=== PATIENT | male | born 1990 | race Caucasian/White ===

== ENCOUNTER 2016-12-03 15:56 | Observation (INO) ==
[2016-12-03] MEDS ORDERED: 0.9 % Sodium Chloride 1,000 ML ONE (16:06)
[2016-12-03] MEDS ORDERED: methylPREDNISolone 125 MG/2 ML VIAL ONE (16:11)
[2016-12-03] MEDS ORDERED: Albuterol 2.5 MG/3 ML NEBULIZER IH ONE (16:14)
[2016-12-03] MEDS ORDERED: 0.9 % Sodium Chloride 1,000 ML IVC ONE (16:16)
[2016-12-03] MEDS ORDERED: Famotidine 20 MG/2 ML VIAL IVP ONE (16:16)
[2016-12-03] MEDS ORDERED: methylPREDNISolone 125 MG/2 ML VIAL IVP ONE (16:16)
[2016-12-03] MEDS ORDERED: *HR* EPINEPHrine 1 MG/ML AMPUL IM ONE ×2 (16:16→16:19)
--- NOTE | 2016-12-03 16:24 | Emergency Department Note ---
Disposition Clinical Impression: Anaphylaxis Disposition: Admitted As Inpatient Condition: Good General Adult HPI - General Chief complaint: ED Allergic Reaction Stated complaint: allergic reaction Time Seen by Provider: 12/03/16 16:14 Source: family - History of Present Illness Pain Scale: 0 - Related Data Home Medications Medication Instructions Recorded Confirmed Beclomethasone Diprop 40mcg [QVAR 1 puff IH BID 12/03/16 12/04/16 40 mcg] LevETIRAcetam [Keppra] 500 mg PO BID 12/03/16 12/04/16 Montelukast [Singulair] 10 mg PO HS 12/03/16 12/04/16 Guanfacine [Tenex] 1 mg PO BID 12/04/16 12/04/16 Previous Rx's Medication Instructions Recorded Diphenhydramine HCl [Allergy 25 mg PO Q6H PRN #15 capsule 12/04/16 Relief] EPINEPHrine [Epipen] 0.3 mg IM ONCE PRN #1 auto.injct 12/04/16 PredniSONE 20 mg PO BIDWM #10 tablet 12/04/16 Allergies Allergy/AdvReac Type Severity Reaction Status Date / Time Penicillins Allergy Hives Verified 12/04/16 11:51 Past Medical History - Past Medical History Medical history: Reports: no medical history Psychiatric history: Reports: ADHD - Social History Smoking Status: Never smoker Smokeless Tobacco Status: No Alcohol use: Reports: none Drug use: Reports: none Physical Exam - General General appearance: in distress Course - Reevaluation(s) Reevaluation #1: I saw the patient with the resident, Dr. Harry. The patient presents with anaphylaxis. He ate a seafood restaurant and shortly thereafter developed hives and shortness of breath. On arrival he was tachypneic with hives all over his body. Blood pressure was 70 systolic. He was given 2 doses of epinephrine IM as well as steroids and Benadryl and albuterol treatments. He is definitely improving. Blood pressure is good at this point. We will continue to observe the patient for rebound. Time: 16:15 Vital Signs Temperature 98 F 12/03/16 16:05 Pulse Rate 113 12/03/16 16:05 Respiratory Rate 24 12/03/16 16:05 Blood Pressure 112/86 12/03/16 16:05 O2 Sat by Pulse Oximetry 99 12/03/16 16:05 Temperature 99.0 F 12/04/16 11:13 Pulse Rate 110 12/04/16 11:13 Respiratory Rate 15 12/04/16 11:13 Blood Pressure 124/71 12/04/16 11:13 O2 Sat by Pulse Oximetry 97 12/04/16 11:13 Oxygen Delivery Oxygen Delivery Room Air Medical Decision Making - Lab Data Result diagrams: 12/04/16 04:46 12/04/16 04:46 Attestation Statement - Attestation Attestation: I, Dr. Dodge, examined this patient [id number] and my medical decision- making was reviewed with Dr. Harry, Resident Physician. I agree with the documented findings, disposition and treatment plan as described except to the extent set forth below. Please see my progress note for details.
--- NOTE | 2016-12-03 16:33 | Emergency Department Note ---
Disposition Clinical Impression: Anaphylaxis Qualifiers: Encounter type: initial encounter Qualified Code(s): T78.2XXA - Anaphylactic shock, unspecified, initial encounter Disposition: Admitted As Inpatient Condition: Good Forms: ED Satisfaction Letter Time of Disposition: 18:03 Allergic Reaction HPI - General Chief complaint: ED Allergic Reaction Stated complaint: allergic reaction Time Seen by Provider: 12/03/16 16:14 Source: family Nursing Notes Reviewed: Yes Vital Signs Reviewed: Yes - History of Present Illness HPI Narrative: Autistic Patient ate at a [place] restaurant approximately an hour ago. While ambulating through [employer] patient stated he was having shortness of breath. Mother noticed that his arms were red so they brought him to the emergency department. She does have an allergy history to penicillins. Mother does not believe he has had contact with penicillins today. - Related Data Allergies Allergy/AdvReac Type Severity Reaction Status Date / Time Penicillins Allergy Hives Verified 12/03/16 16:08 Review of Systems: Review of systems obtained from patient's mother. She denies any fever or recent illnesses Other than that the Pt has had a runny nose recently. He does have a penicillin allergy. She reports the patient ate [place] food and approximately an hour later she noticed that he had a rash all over him when he was complaining of shortness of breath. All systems ED: reviewed and negative except as stated. Allergic/Immunologic: Reports: facial swelling, urticaria Past Medical History - Past Medical History Attestation: Yes The following information was validated with the patient. Source: obtained from family, nursing notes reviewed Medical history: Reports: other (Autism, Tics) Psychiatric history: Reports: ADHD - Social History Smoking Status: Never smoker Smokeless Tobacco Status: No Alcohol use: Reports: none Drug use: Reports: none Physical Exam - General Limitations: physical limitation, other (Patient has autism. He is somewhat verbal. He can answer yes or no. He is able to say that he is short of breath. ) General appearance: in distress - Head Head exam: atraumatic, normocephalic, normal inspection - Eye Eye exam: Present: normal appearance, PERRL, EOMI. Absent: scleral icterus - ENT ENT exam: mucous membranes moist, other (Perioral cyanosis and swelling.) - Neck Neck exam: Present: full ROM, trachea midline, other (Urticaria) - Chest Chest inspection: Present: normal inspection, symmetric chest wall rise, rash ( Urticaria) - Respiratory Respiratory exam: Present: respiratory distress, wheezes, other (Diminished lung sounds throughout.) - Cardiovascular Cardiovascular exam: Present: regular rate, normal rhythm, normal heart sounds - Abdominal Exam Abdominal exam: Present: soft, Non-Tender. Absent: tenderness, distention, guarding, rebound, rigidity - Extremities Exam Extremities exam: Present: full ROM, other (Urticaria diffusely). Absent: pedal edema, joint swelling - Neurological Exam Neurological exam: Present: alert. Absent: motor sensory deficit - Psychiatric Psychiatric exam: Present: anxious - Skin Skin exam: Present: rash (Urticaria diffusely), cyanosis (perioral) Course Course Narrative: Autistic Male patient brought in by his mother for difficulty breathing and rash. He is in full anaphylactic shock when he arrived. He was moving minimal air. Lung sounds were tight bilaterally. He had perioral cyanosis and swelling. He had hives diffusely. He is given an initial dose of 1-1000 epinephrine 0.3 mg IM. An IV was established patient was given 50mg of Benadryl 250 mg of Solu-Medrol, and albuterol treatment, 20 mg of Pepcid, a subsequent dose of 0.5 mg 1-1000 IM epi. He was also given a 1 L fluid bolus. We monitored patient in the emergency department. Due to patient's autism and unknown stimulus, I feel it is a reasonable decision to admit patient for observation. He is resting comfortably and denies any shortness of breath at this time. Due to significance of patient's presenting symptoms and patient's mental incapacity we will admit patient for observation. - Reevaluation(s) Reevaluation #1: Patient resting comfortably in bed. Lung sounds are clear. Time: 18:02 - Consultations Consultation #1: Viktoria Zarate [employer] HARVE[employer] MACHINE OPERATOR accepted patient in stable condition. Time: 17:33 Vital Signs Temperature 98 F 12/03/16 16:05 Pulse Rate 113 12/03/16 16:05 Respiratory Rate 24 12/03/16 16:05 Blood Pressure 112/86 12/03/16 16:05 O2 Sat by Pulse Oximetry 99 12/03/16 16:05 Temperature 98 F 12/03/16 16:05 Pulse Rate 95 12/03/16 16:19 Respiratory Rate 18 12/03/16 16:19 Blood Pressure 177/110 12/03/16 16:19 O2 Sat by Pulse Oximetry 98 12/03/16 16:19 Oxygen Delivery Oxygen Delivery Room Air Allergic Reaction - Differential Diagnosis Differential Diagnosis: Likely: anaphylaxis
[2016-12-03 21:51] LABS: Basophils % 0.2 %; Hematocrit 48.8 % (37.5-50.1); Hemoglobin 16.2 g/dL (12.9-16.9); Immature Granulocytes % 0.4 % (0-4); Lymphocytes # 0.3 K/mcL (0.6-4.6); Lymphocytes % 1.9 %; Mean Corpuscular HGB Conc 33.2 g/dL (31.6-35.5); Mean Corpuscular Hemoglobin 29.6 pg (28.0-33.3); Mean Corpuscular Volume 89.1 fL (83.0-100.0); Mean Platelet Volume 11.7 fL (9.4-12.4); Monocytes # 0.1 K/mcL (0.0-1.3); Monocytes % 0.5 %; Neutrophils # 12.5 K/mcL (1.6-8.9); Platelet Count 257 K/mcL (140-400); Red Blood Count 5.48 M/mcL (4.19-5.50); Red Cell Distribution Width 13.5 % (11.5-14.5)
[2016-12-03 22:03] LABS: Alanine Aminotransferase 29 Units/L (0-55); Albumin 4.5 g/dL (3.5-5.0); Albumin/Globulin Ratio 1.4 (1.1-2.2); Alkaline Phosphatase 102 Units/L (38-126); Aspartate Amino Transferase 31 Units/L (5-34); BUN/Creatinine Ratio 13 (6-26); Bilirubin,Total 0.4 mg/dL (0.2-1.2); Blood Urea Nitrogen 12 mg/dL (8-26); Calcium 9.4 mg/dL (8.6-10.8); Carbon Dioxide 22 mEq/L (19-29); Chloride 109 mEq/L (98-109); Globulin 3.2 g/dL (2.4-3.5); Glucose 121 mg/dL (70-99); Osmolality,Calculated 293 (280-300); Sodium 141 mEq/L (136-145); Total Protein 7.7 g/dL (6.0-8.3); eGFR For African Americans > 60 (> 60); eGFR For Non-African Americans > 60 (> 60)
[2016-12-03] MEDS ORDERED: *HR* EPINEPHrine 0.3 MG/0.3 ML (PEN) IM PRN (22:23)
[2016-12-03] MEDS ORDERED: 0.9 % Sodium Chloride 1,000 ML IVC SCH (22:30)
[2016-12-03] MEDS: methylPREDNISolone 125 MG/2 ML VIAL IVP SCH (23:13)
[2016-12-03] MEDS: levETIRAcetam 250 MG TABLET PO SCH (23:13)
--- NOTE | 2016-12-04 02:41 | Internal Med History&Physical ---
Date of Encounter: 12/04/16 Time of Encounter: 02:37 Assessment and Plan (1) Anaphylaxis Current visit: Yes Status: Acute Patient presents with enough anaphylactic reaction. He had received 2 doses of epinephrine. He is hemodynamically stable during my interview. The culprit is not very clear but suspect it is related to some sort of seafood. He has eaten since before without any problems. I have discussed with the mother the importance of EpiPen to be with her at all times. For now will continue IV steroids H1 H2 receptor blockers hydration telemetry monitoring. Sure I also want advised the patient's mother to be cautious with seafood Qualifiers: Encounter type: initial encounter Qualified Code(s): T78.2XXA - Anaphylactic shock, unspecified, initial encounter Internal Medicine - H&P: HPI Chief complaint: sob History of present illness: Mr. Hatfield is a 26 year old male who presented emergency room today with an allergic reaction. One hour after the patient eat at [employer] shrimp steak and zucchini he started having diffuse skin rash difficulty breathing. Was reported that on our arrival to the emergency room his systolic blood pressure was 70 and he was cyanotic. He had received 2 injections of epinephrine IV steroids each one in H2 receptor blockers in the emergency room. During my interview patient was a symptomatic. Patient denies any prior similar allergic reaction before. He has history of autism. No smoking alcohol or illicit drug use. Past Med Surg Social Fam HX - Past Medical History Medical history: other Psychiatric history: ADHD, other - Social History Smoking Status: Never smoker Smokeless Tobacco Status: No Alcohol use: none Drug use: none - Family History Mother Hx Family Respiratory Disorders: Yes (asthma) Father Hx Family Respiratory Disorders: Yes (asthma) Hx Family Endocrine Disorder: Yes (DM) Internal Medicine - H&P: Meds Beclomethasone Diprop 40mcg [Qvar 40 mcg] 1 puff IH BID 12/03/16 [History] LevETIRAcetam [Keppra] 500 mg PO BID 12/03/16 [History] Montelukast [Singulair] 10 mg PO HS 12/03/16 [History] Allergies Penicillins Allergy (Verified 12/03/16 16:08) Hives All Systems PM: A 10-system review of systems was performed and is negative for pertinent findings except as documented above in the HPI. Review of systems: 10 point figure systems is negative except for HPI. - Constitutional Vitals: Temp Pulse Resp BP Pulse Ox 98.6 F 88 16 130/75 99 12/03/16 23:28 12/03/16 23:28 12/03/16 23:28 12/03/16 23:28 12/03/16 23:28 Exam: Gen.: patient is alert and oriented times 3 not in distress. Cardiac: normal S1 S2 no additional sounds remembers. Chest: Clear to auscultation bilaterally no wheezing abdomen: soft nontender nondistended lower extremity: lax calf muscles Internal Med - H&P Results - Labs CBC & Chem 7: 12/03/16 21:23 12/03/16 21:23 Labs: Short CBC 12/03/16 Range/Units 21:23 WBC 12.9 H (4.3-11.1) K/mcL Hgb 16.2 (12.9-16.9) g/dL Hct 48.8 (37.5-50.1) % Plt Count 257 (140-400) K/mcL Neutrophils # 12.5 H (1.6-8.9) K/mcL BMP 12/03/16 21:23 Sodium 141 Potassium 4.0 Chloride 109 Carbon Dioxide 22 BUN 12 Creatinine 0.90 Glucose 121 H Calcium 9.4 Liver Function 12/03/16 Range/Units 21:23 Total Bilirubin 0.4 (0.2-1.2) mg/dL AST 31 (5-34) Units/L ALT 29 (0-55) Units/L Alkaline Phosphatase 102 (38-126) Units/L Albumin 4.5 (3.5-5.0) g/dL - VTE Documentation of Mechanical Device: Intermittent pneumatic compression device
[2016-12-04 05:18] LABS: Basophils % 0.1 %; Hematocrit 44.5 % (37.5-50.1); Immature Granulocytes % 0.6 % (0-4); Lymphocytes # 0.6 K/mcL (0.6-4.6); Lymphocytes % 7.7 %; Mean Corpuscular HGB Conc 33.7 g/dL (31.6-35.5); Mean Platelet Volume 11.9 fL (9.4-12.4); Monocytes # 0.1 K/mcL (0.0-1.3); Monocytes % 0.9 %; Neutrophils # 7.3 K/mcL (1.6-8.9); Platelet Count 242 K/mcL (140-400); Red Cell Distribution Width 13.7 % (11.5-14.5); Segmented Neutrophils % 90.7 %
[2016-12-04] MEDS: methylPREDNISolone 125 MG/2 ML VIAL IVP SCH (05:32)
[2016-12-04] MEDS ORDERED: Famotidine 20 MG/2 ML VIAL IVP SCH (06:00)
[2016-12-04 06:02] LABS: BUN/Creatinine Ratio 14 (6-26); Blood Urea Nitrogen 11 mg/dL (8-26); Calcium 8.9 mg/dL (8.6-10.8); Carbon Dioxide 22 mEq/L (19-29); Chloride 108 mEq/L (98-109); Glucose 140 mg/dL (70-99); Magnesium 1.9 mg/dL (1.6-2.6); Osmolality,Calculated 292 (280-300); Sodium 140 mEq/L (136-145); eGFR For African Americans > 60 (> 60); eGFR For Non-African Americans > 60 (> 60)
[2016-12-04] MEDS: levETIRAcetam 250 MG TABLET PO SCH (09:18)
[2016-12-04 11:15] VITALS: BP 124/71
--- NOTE | 2016-12-04 12:25 | Discharge Summary ---
Date of Encounter: 12/04/16 Time of Encounter: 09:30 - Discharge Diagnosis (1) Anaphylaxis Priority: Primary Status: Resolved Comments: Unknown etiology. Mother has been educated to avoid the foods he came into contact with on the night of this anaphylactic reaction. Sending home with [place], recommend follow-up outpatient. Asymptomatic at time of discharge. Qualifiers: Encounter type: initial encounter Qualified Code(s): T78.2XXA - Anaphylactic shock, unspecified, initial encounter (2) Autism Priority: Secondary Status: Chronic Comments: Behavior consistent with his baseline. He is verbal and denied pain or shortness of breath on day of discharge. - Discharge Medications Prescriptions: Diphenhydramine HCl [Allergy Relief] 25 mg PO Q6H PRN #15 capsule PRN Reason: itching EPINEPHrine [Epipen] 0.3 mg IM ONCE PRN #1 auto.injct PRN Reason: Anaphylaxis PredniSONE 20 mg PO BIDWM #10 tablet Home Medications: Beclomethasone Diprop 40mcg [QVAR 40 mcg] 1 puff IH BID 12/03/16 [History] LevETIRAcetam [Keppra] 500 mg PO BID 12/03/16 [History] Montelukast [Singulair] 10 mg PO HS 12/03/16 [History] Diphenhydramine HCl [Allergy Relief] 25 mg PO Q6H PRN #15 capsule 12/04/16 [Rx] EPINEPHrine [Epipen] 0.3 mg IM ONCE PRN #1 auto.injct 12/04/16 [Rx] Guanfacine [Tenex] 1 mg PO BID 12/04/16 [History] PredniSONE 20 mg PO BIDWM #10 tablet 12/04/16 [Rx] Allergies/Adverse Reactions: Allergies Penicillins Allergy (Verified 12/04/16 11:51) Hives Date of admission: 12/03/16 18:09 Primary care physician: Alejandra Hernandez Discharging clinician: Caren Valles Anticipated date of discharge: 12/04/16 - Patient Status Disposition: Home, Self-Care Condition: Good Functional capacity at discharge: independent ambulation Overall status at discharge: patient is back to baseline - Discharge Instructions Follow Up With: Alejandra Hernandez MD [Primary Care Provider] - 12/10/16 2:00 pm (Please bring insurance card to appointment.) Additional Instructions: Follow-up with primary care provider as scheduled - Diet and Activity Activity: increase activity as tolerated Diet: regular diet (avoid seafood) Hospital course: Mr. Hatfield is a 26 year old male with past medical history of autism. Patient presented to the emergency department chief complaint allergic reaction. One hour after he and his family ate at [place] restaurant he started to have diffuse rash on his skin coupled with difficulty breathing. On upon arrival to the emergency department, systolic blood pressure was 70 and he was noted to be cyanotic. He received 2 injections of IV epinephrine, an H2 naren, and admitted to the hospitalist service for further evaluation and management. Patient does not have a history of prior allergic reactions. He was admitted and observed overnight. On day of discharge, he was asymptomatic. He is able to tolerate a regular diet. Unknown etiology as to the source of his anaphylactic reaction, suspect possible seafood although his mother states he has had seafood in the past. He was sent home with an epinephrine pen as well as an anaphylaxis emergency care plan. He and his mother were educated on epinephrine pen usage as well as signs and symptoms of an allergic reaction. He was discharged home in stable condition with close outpatient follow-up recommended. - Time Spent with Patient Total time spent providing and/or coordinating discharge services: - Constitutional Vitals: Temp Pulse Resp BP Pulse Ox 99.0 F 110 15 124/71 97 12/04/16 11:13 12/04/16 11:13 12/04/16 11:13 12/04/16 11:13 12/04/16 11:13 General appearance: Present: A&O X 3, pleasant, no acute distress, answers questions appropriately - Head Head exam: Present: atraumatic, normocephalic - Eye Eye exam: Present: PERRL, conjuntiva pink, sclera anicteric Pupils: Present: PERRL - ENT ENT exam: Present: mucous membranes moist, normal exam - Expanded ENT Exam Mouth exam: Present: normal external inspection. Absent: muffled voice - Neck Neck exam general surgery: Present: supple, trachea midline. Absent: lymphadenopathy - Respiratory Respiratory exam: Present: CTAB. Absent: accessory muscle use, rales, respiratory distress, rhonchi, wheezes - Cardiovascular Cardiovascular exam: Present: RRR, +S1, +S2. Absent: diastolic murmur, gallop, rubs, systolic murmur - GI/Abdominal GI/Abdominal exam: Present: normal bowel sounds, soft, no peritoneal signs. Absent: distended, tenderness - Extremities Exam Extremities exam: Present: warm, radial pulses palpable and symetrical. Absent : calf tenderness, cyanotic, pedal edema - Neurological Exam Neurological exam: Present: alert, CN II-XII intact, normal gait, oriented X3, no focal deficits, strengths equal and symetr throughout. Absent: pronater drift, facial droop, speech deficit - Skin Skin exam: Present: dry, intact, normal color, warm - VTE Documentation of Mechanical Device: Intermittent pneumatic compression device
== END 2016-12-04 13:13 | disposition home or self-care (01) ==
LOC: 3BNU 15:56 → EMEROO 15:56 → 3BNU 18:53
PROVIDERS: ADMIT Hospitalist; ATTEND Nurse Practitioner Family